=== PATIENT | male | born 1955 | race Caucasian/White ===

== ENCOUNTER 2023-03-23 06:15 | Day surgery (SDC) | payer MEDICARE, BC ==
[2023-03-23] MEDS ORDERED: Midazolam 1 MG/ML 2 ML SDV ONE (06:56)
[2023-03-23] MEDS ORDERED: fentaNYL 100 MCG/2 ML SDV ONE (06:56)
[2023-03-23] MEDS ORDERED: fentaNYL 100 MCG/2 ML SDV IV ONE ×2 (07:00→07:01)
[2023-03-23] MEDS ORDERED: Dextrose 5%-0.45% NaCl 1,000 ML IV SCH (07:00)
[2023-03-23] MEDS ORDERED: Midazolam 1 MG/ML 2 ML SDV IV ONE ×3 (07:01→07:03)
[2023-03-23 08:22] VITALS: BP 141/75; PULSE 63
== END 2023-03-23 08:20 | disposition home or self-care (01) ==
LOC: DL.ENDO 06:15
PROVIDERS: ATTEND Internal Medicine Gastroenterology
DX: Z12.11 Encounter for screening for malignant neoplasm of colon (principal); F10.90 Alcohol use, unspecified, uncomplicated
CPT/HCPCS: J2250; J3010; J7042